=== PATIENT | female | born 1975 | race Caucasian/White ===

== ENCOUNTER 2019-10-23 08:20 | Emergency (ER) | payer SELFPAY ==
--- NOTE | 2019-10-23 09:57 | ER Document Report ---
ED General - General Chief Complaint: Ear Pain Stated Complaint: LEFT EAR PAIN Time Seen by Provider: 10/23/19 09:42 TRAVEL OUTSIDE OF THE [place] IN LAST 30 DAYS: No - HPI Notes: Patient is a 44-year-old female presents emergency department for evaluation of left ear pain. She states is been ongoing for the last several hours. She is had upper respiratory type infection symptoms and cough for about the last month. She denies any fevers or chills. No nausea or vomiting. No tinnitus. No dizziness. She states the pain is in her ear and radiates into her jaw and under her neck. She denies any dental pain or troubles. No difficulty swallowing. - Related Data Allergies/Adverse Reactions: erythromycin base Allergy (Verified 10/23/19 08:27) Home Medications: None Past Medical History - General Information source: Patient - Social History Smoking Status: Current Every Day Smoker Chew tobacco use (# tins/day): No Frequency of alcohol use: None Drug Abuse: None Family History: Reviewed & Not Pertinent Patient has suicidal ideation: No Patient has homicidal ideation: No Past Surgical History: Reports: Hx Myringotomy, Hx Tonsillectomy, Hx Tubal Ligation Review of Systems - Review of Systems Constitutional: No symptoms reported EENT: See HPI Cardiovascular: No symptoms reported Respiratory: See HPI Gastrointestinal: No symptoms reported Genitourinary: No symptoms reported Musculoskeletal: No symptoms reported Skin: No symptoms reported Neurological/Psychological: No symptoms reported Physical Exam - Vital signs Vitals: Temp Pulse Resp BP Pulse Ox 98.4 F 95 12 122/77 100 10/23/19 08:24 10/23/19 08:24 10/23/19 08:24 10/23/19 08:24 10/23/19 08:24 - Notes Notes: Vital signs reviewed, please refer to chart. Head is normocephalic, atraumatic. Pupils equal round, reactive to light. Right TM is pearly wesley with good light reflex. Left TM is retracted, erythematous, with what appears to be purulent effusion developing on the inferior aspect. Neck is supple without meningismus. Heart is regular rate and rhythm. Lungs are clear to auscultation bilaterally. Abdomen is soft, nontender, normoactive bowel sounds throughout. Extremities without cyanosis, clubbing. Posterior calves are nontender. Peripheral pulses are equal. Skin is warm and dry. Patient is awake, alert, neurological exam is nonfocal. Course - Re-evaluation Re-evalutation: 10/23/19 09:59 Patient's findings are most consistent with an acute otitis media. She has not been on antibiotics at all for the last 2 years. She is written a prescription for amoxicillin. She is to take Naprosyn as well for pain. Follow-up with primary care. She is told to quit smoking. She is to return to the ED with worsening or new concerning symptoms of any sort. - Vital Signs Vital signs: Temp Pulse Resp BP Pulse Ox 98.4 F 95 12 122/77 100 10/23/19 08:24 10/23/19 08:24 10/23/19 08:24 10/23/19 08:24 10/23/19 08:24 Discharge - Discharge Clinical Impression: Left otitis media Qualifiers: Otitis media type: suppurative Chronicity: acute Recurrence: not specified as recurrent Spontaneous tympanic membrane rupture: without spontaneous rupture Qualified Code(s): H66.002 - Acute suppurative otitis media without spontaneous rupture of ear drum, left ear Condition: Stable Disposition: HOME, SELF-CARE Instructions: Otitis Media ([facility]) Additional Instructions: Take antibiotic as prescribed until gone. Take Naprosyn as needed for severe pain, please take with food. Follow-up with primary care next week. Return to the emergency department for worsening or new concerning symptoms of any sort. Prescriptions: Amoxicillin Trihydrate [Amoxil 500 mg Capsule] 500 mg PO TID #30 cap Naproxen [Naprosyn] 500 mg PO BID #20 tablet
[2019-10-23 10:04] VITALS: BP 122/75
== END 2019-10-23 10:13 | disposition home or self-care (01) ==
LOC: ER 08:20
DX: H66.002 Acute suppurative otitis media without spontaneous rupture of ear drum, left ear (principal); H92.02 Otalgia, left ear; R05 Cough; F17.200 Nicotine dependence, unspecified, uncomplicated
CPT/HCPCS: 99282